=== PATIENT | male | born 1995 ===

== ENCOUNTER 2022-01-10 09:16 | Emergency (ER) | payer OTHER ==
[2022-01-10 10:40] VITALS: BP 97/57
== END 2022-01-11 09:30 | disposition left against medical advice (07) ==
LOC: ED 09:16
DX: T17.208A Unspecified foreign body in pharynx causing other injury, initial encounter (principal); Z53.21 Procedure and treatment not carried out due to patient leaving prior to being seen by health care provider; X58.XXXA Exposure to other specified factors, initial encounter; Y93.89 Activity, other specified; Y92.89 Other specified places as the place of occurrence of the external cause; Y99.8 Other external cause status